=== PATIENT | male | born 1955 | race Caucasian/White ===

== ENCOUNTER → 2016-02-25 | Outpatient (CLI) | payer OTHER ==
--- NOTE | 2016-02-25 15:04 | DX ---
Cervical Spine, Two Views February 25, 2016 Indication: Neck pain. Comparison: Two-view cervical spine dated January 06, 2016. Technique: Upright AP and lateral views. Findings: The occiput through T1 is anatomically aligned. The anterior cervical diskectomy and fusion construct extending from C5 to C7 is well seated. The construct consists of an anterior plate and bi lateral transvertebral screws in C5, C6 and C7. Bone graft material in the C5-C6 and C6-C7 interbody space is well seated and at least partially osseous fused. Mild degenerative disk disease at C7-T1 is unchanged. Prevertebral soft tissues are normal. Lung apices are clear. Impression: 1. Well-seated ACDF extending from C5 to C7. 2. Mild degenerative disk disease is unchanged.
== END ==
LOC: FIMAGING 11:53
PROVIDERS: ATTEND Neurological Surgery
DX: M50.10 Cervical disc disorder with radiculopathy, unspecified cervical region (principal); Z98.1 Arthrodesis status

== ENCOUNTER → 2016-05-09 | Outpatient (CLI) | payer OTHER | LOC: FIMAGING 09:03 | PROVIDERS: ATTEND Otolaryngology | DX: H93.19 Tinnitus, unspecified ear (principal) ==

== ENCOUNTER 2016-06-01 15:35 | Emergency (ER) | payer OTHER ==
--- NOTE | 2016-06-01 16:04 | EDPHY ---
H & P Time Seen by Provider: 06/01/16 15:55 HPI/ROS: CHIEF COMPLAINT: Laceration left hand HISTORY OF PRESENT ILLNESS: 61-year-old [id number] male sustained accidental laceration to his left hand palmar aspect which occurred earlier today when he tripped while he was hiking and he fell onto a dirt surface. He saw his primary care provider who recommended he come to the ER for evaluation. His tetanus is out-of-date. No paresthesia distally. No flexor deficitsDistally PHYSICAL EXAM (Prior to examination, patient consented to physical exam, hands were washed and my usual and customary physical exam procedures followed) 1) GENERAL: Well-developed, well-nourished, alert and oriented. Appears to be in no acute distress. 2) HEAD: Normocephalic 3) HEENT: sclera anicteric 4) LUNGS: Breathing comfortably. 5) SKIN: left hand palmar aspect 4 cm irregular laceration along the 4th and 5th metacarpal. Visible dirt contaminant. No signs of infection 6) MUSCULOSKELETAL: flexor function intact at digits distally 7) NEUROLOGIC: Radial ulnar median nerve function intact distally Smoking Status: Never smoked Constitutional: Initial Vital Signs Temperature (C) 36.4 C 06/01/16 15:37 Heart Rate 79 06/01/16 15:37 Respiratory Rate 14 06/01/16 15:37 Blood Pressure 145/88 H 06/01/16 15:37 O2 Sat (%) 70 L 06/01/16 15:37 O2 Delivery Mode Room Air Allergies/Adverse Reactions: amoxicillin Allergy (Mild, Verified 01/05/16 14:15) Rash Home Medications: Medication Instructions Recorded Albuterol [Proventil Inhaler HFA 2 puffs IH DAILY PRN 12/30/15 (*)] Budesonide/Formoterol 160/4.5 1 puffs IH DAILY 12/30/15 [Symbicort 160-4.5 Mcg Inh (*)] Gabapentin [Neurontin 300 MG (*)] 300 mg PO TID 12/30/15 oxyCODONE HCL/ACETAMINOPHEN 1 each PO Q6 PRN 12/30/15 [Percocet 10-325 mg Tablet] Cyclobenzaprine [Flexeril 10 MG 10 mg PO TID PRN #0 tab 01/06/16 (*)] oxyCODONE IR [Oxycodone Ir (*)] 5 mg PO Q6 PRN #0 tab 01/06/16 Cephalexin [Keflex] 500 mg PO QID 5 Days 06/01/16 ED Images - Extremities Hands Front Left/Right: 1 - laceration MDM/Departure - MDM Procedures: Procedure: Laceration repair. I explained the indications, risks and benefits for both laceration repair and anesthetic administration. Verbal consent was obtained from the patient . The laceration on the left palm was anesthetized using 0.5% bupivicaine without epinephrine . After anesthetic administered the patient was observed for a period of time and had no apparent adverse effects. The wound was cleaned, prepped, draped in normal sterile fashion and explored to its base. No foreign body seen, no foreign bodies palpated. The wound was loosely reapproximated with 5 simple interrupted 5 O Ethilon sutures. The wound repair was simple. The procedure was performed by myself. Patient has been informed that scarring will occur, although efforts have been made to minimize this. Procedure: Splint A Velcro volar splint was applied by ER dental service technician. After application of the splint I returned and re-examined the patient. The splint was adequately immobilizing the joint and distal to the splint the patient's circulation and sensation were intact. Patient shows no signs of compartment syndrome. Was given orthopedic precautions. Medications Given: Discontinued Medications Cephalexin HCl (Keflex) 500 mg PO EDNOW ONE PRN Reason: Protocol Stop: 06/01/16 16:29 Last Admin: 06/01/16 16:30 Dose: 500 mg Diphtheria/Tetanus/Acell Pertussis (Boostrix) 0.5 ml IM .ONCE ONE Stop: 06/01/16 16:35 Last Admin: 06/01/16 16:50 Dose: 0.5 ml ED Course/Re-evaluation: Patient has been re-examined with serial exams. Was also examined by Dr. Yamil Castellon. This wound initially had visible contaminant material which was male debrided by myself and further irrigated. Today is Saturday. Recommend close follow-up with Hand surgery on Saturday. In the meantime the wound has been loosely reapproximated with 5 sutures. He is started on Keflex. he is splinted. Usual customary wound precautions Provided. - Depart Disposition: Home, Routine, Self-Care Clinical Impression: Laceration of left hand Qualifiers: Encounter type: initial encounter Foreign body presence: without foreign body Qualified Code(s): S61.412A - Laceration without foreign body of left hand, initial encounter Condition: Good Instructions: Laceration (ED) Additional Instructions: Return to the ER if you develop redness, swelling, discharge, warmth to the wound, red streaks going up your arm , or any other symptoms that concern you. Prescriptions: Cephalexin [Keflex] 500 mg PO QID 5 Days Referrals: Idalia Kim MD [Medical Doctor] - 06/04/16
[2016-06-01] MEDS ORDERED: CEPHALEXIN 500 MG CAP PO ONE ×2 (16:28)
[2016-06-01] MEDS ORDERED: TDAP ADULT 0.5 ML INJ (BOOSTRIX) IM ONE (16:34)
[2016-06-01 17:35] VITALS: BP 124/79; PULSE 62; RESP 16; TEMP 98.2; O2SAT 94
== END 2016-06-01 17:47 | disposition home or self-care (01) ==
PROC: 0HQGXZZ Repair Left Hand Skin, External Approach (ICD-10-PCS; principal; 2016-06-01)
DX: S61.412A Laceration without foreign body of left hand, initial encounter (principal); Z23 Encounter for immunization; W01.0XXA Fall on same level from slipping, tripping and stumbling without subsequent striking against object, initial encounter; Y99.8 Other external cause status; Y93.01 Activity, walking, marching and hiking

== ENCOUNTER → 2016-06-26 | Outpatient (CLI) | payer OTHER | LOC: FIMAGING 08:11 | PROVIDERS: ATTEND Physician Assistant | DX: Z47.89 Encounter for other orthopedic aftercare (principal); Z98.1 Arthrodesis status ==

== ENCOUNTER → 2016-09-25 | Outpatient (CLI) | payer OTHER | LOC: FIMAGING 16:28 | PROVIDERS: ATTEND Physician Assistant | DX: Z09 Encounter for follow-up examination after completed treatment for conditions other than malignant neoplasm (principal); M50.30 Other cervical disc degeneration, unspecified cervical region; Z98.1 Arthrodesis status ==